=== PATIENT | female | born 1990 | race Caucasian/White ===

== ENCOUNTER → 2023-02-16 09:28 | Outpatient (BNVA) | payer OTHER, SELFPAY | PROVIDERS: PCP Physician Assistant; Visit Provider Physician Assistant Surgical ==

== ENCOUNTER 2023-04-10 11:00 | Outpatient (AMB) | payer OTHER, SELFPAY ==
--- NOTE | 2023-04-10 11:04 | MHC.OFFVISWM ---
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 Her goal is to lose 100 lbs. She reports first being concerned about her weight in college years. She has tried multiple methods of weight loss including [employer], AOM's presently without permanent results. She lives with and foster daughter age 6. 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 Had been on Ozempic and lost 30 lbs,now out of stock and started on Monjauro for 1 month and has gained some weight. She wakes at: 6 am, bed at 10 pm Breakfast: 7am - georgian yogurt Light and Fit - adds berries or granola. OR Clean Simple eats powder with 8 oz Fairlife 2%. OR has a croissant grade school teacher from . 1 coffee per day with sweetened creamer Lunch: 12 pm - leftovers with water. Dinner: 6 pm - restaurant food 2-3 d/week ([employer], [place]) Vegetable, protein and mac and cheese or mashed potatoes - sometimes has second helpings. water After dinner: off the rails , something sweet - cookies ice cream, cookie dough - all large portions. Other snacks: afternoon snack sometimes dried fruit, bagel with cream cheese. Liquids: Soda once per week, no fruit juice or other sweetened drinks. Alcohol intake: once per month glass of wine, tobacco: none, marijuana: none Exercise: at home has weights, treadmill not set up yet. Has VR for exercise. No regular exercise for 1-2 months. Last mammogram: too young Last pap smear: up to date control method: Nexplanon implant BERNICE: 3 ESS: 9 GERD: 0 QOL:87 Assessment & Plan Assessment & Plan (1) Morbid obesity: Code(s): E66.01 - Morbid (severe) obesity due to excess calories Plan: This is a 32 yo woman with morbid obesity. We had a lengthy discussion regarding the chronic nature of obesity and the differences between MWL and SWL program. She needs to lose about 150 lbs to no longer be obese. Next appt with me as soon as we can scedule it to complete meal and exercise programs. Patient is morbidly obese and is not considered stable at this time.?I spent a total of 60 minutes reviewing/updating records, examining the patient and counseling the patient on weight management as detailed above. (2) Diabetes mellitus: Code(s): E11.9 - Type 2 diabetes mellitus without complications (3) Hyperlipidemia: Code(s): E78.5 - Hyperlipidemia, unspecified (4) Anxiety: Code(s): F41.9 - Anxiety disorder, unspecified Plan see above Telehealth Telehealth Location of provider rendering services: practice address Location of patient: address on file Patient Identification confirmed using: Name, : Yes Telehealth method: video Patient verbally consented to treatment: Yes Patient verbally consented to billing insurance company: Yes Patient informed of any privacy concerns related to visit: Yes Coding Level of Care Code Tele New Pt Level 5 (87331) Diagnoses Morbid obesity E66.01 Diabetes mellitus E11.9 Hyperlipidemia E78.5 Anxiety F41.9
[2023-04-10 11:30] VITALS: BMI 59.4
== END 2023-04-10 11:58 | disposition home or self-care (01) ==
LOC: HO.HBS 11:18
PROVIDERS: PCP Physician Assistant; Visit Provider Physician Assistant
DX: E66.01 Morbid (severe) obesity due to excess calories (principal); Z68.43 Body mass index [BMI] 50.0-59.9, adult; E11.9 Type 2 diabetes mellitus without complications; E78.5 Hyperlipidemia, unspecified; F41.9 Anxiety disorder, unspecified
CPT/HCPCS: 99205

== ENCOUNTER → 2023-04-10 11:00 | Outpatient (BNVA) | payer OTHER, SELFPAY | PROVIDERS: PCP Physician Assistant; Visit Provider Physician Assistant ==

== ENCOUNTER 2023-05-10 10:10 | Outpatient (AMB) | payer OTHER, SELFPAY ==
--- NOTE | 2023-05-10 10:03 | MHC.AMNUTRGE ---
Intake Intake Visit Reasons: VIDEO Initial Nutrition SWL Allergies No Known Allergies Allergy (Verified 02/16/23 10:26) HPI Nutrition Presentation Details MWL Initial nutrition Not interested in SW Reason for consult elevated BMI Diet Assmnt Details Pt shares it is important to her to have a sustainable nutrition plan. Has questions about certain foods groups and how they fit into a weihgt loss plan. breakfast protein shake lunch 4oz protein, 6oz veg dinner same as lunch Hydration: I could do better not sure how much biggest issue in the past had been eating at night very very large amounts . Went through phases in life she tried to eat healthier Received a lot of comments about her weight as a child by her father. Has a therapist. Exercise: sunday Kickboxing and yoga exercise class , plus home workouts or long walk. Carlos is karate cardio. Dietary counseling reduction Who buys your food self Who prepares/cooks your food self Meal frequency regular: breakfast (traci donuts - coffee and donut and crossant ), lunch, dinner (cooked, pasta fattening stuff ) and snacks ( almost a binge ) Diagnosis Nutrition problem #1 overweight/obesity As related to (etiology) #1 excess energy intake and physical inactivity As evidenced by (sign/symptom) #1 high BMI Monitoring/Goals Nutrition problem monitoring total energy intake, level of knowledge/skill, total PRO intake, total CHO intake and weight Outcome progress progressing Learning/Education Readiness to learn excellent Stages of change action Educational materials provided Yes Most Recent Diabetes Results: No Data to Display Assessment & Plan Assessment & Plan (1) Morbid obesity: Code(s): E66.01 - Morbid (severe) obesity due to excess calories Plan see below Patient Instructions: Provided food recommendations for high protein meals/snacks and recipes. Supported pt in her desire for sustainable nutrition interventions. She will f/u with PA next month as part of the MW program Telehealth Telehealth Location of provider rendering services: practice address Location of patient: address on file Patient Identification confirmed using: Name, : Yes Telehealth method: video Patient verbally consented to treatment: Yes Patient verbally consented to billing insurance company: Yes Patient informed of any privacy concerns related to visit: Yes Minutes spent on Phone/Video with Pt.: 55 Coding Level of Care Code Nutr Indiv Intake (65824) Diagnoses Morbid obesity E66.01 Time Spent (min) 55
== END 2023-05-10 10:52 | disposition home or self-care (01) ==
LOC: HO.HBS 10:10
PROVIDERS: PCP Physician Assistant; Visit Provider Dietitian, Registered
DX: E66.01 Morbid (severe) obesity due to excess calories (principal)

== ENCOUNTER → 2023-05-10 10:10 | Outpatient (BNVA) | payer OTHER, SELFPAY | PROVIDERS: PCP Physician Assistant; Visit Provider Dietitian, Registered | DX: E66.01 Morbid (severe) obesity due to excess calories (principal); Z71.3 Dietary counseling and surveillance | CPT/HCPCS: 97802 ==